=== PATIENT | male | born 1960 | race Caucasian/White ===

== ENCOUNTER → 2016-12-24 | Outpatient (CLI) | payer OTHER ==
[2016-12-24 09:16] LABS: BASO # 0.1 x10^3/uL (0.0-0.2); BASO % 1 % (0-3); EOS # 0.5 x10^3/uL (0.0-0.7); EOS % 6 % (0-3); HEMATOCRIT 42.5 % (39.0-53.0); HEMOGLOBIN 14.5 g/dL (13.0-17.5); LYMPH # 1.6 x10^3/uL (1.0-4.8); LYMPH % 19 % (24-48); MEAN CORPUSCULAR HEMOGLOBIN 29 pg (25-35); MEAN CORPUSCULAR HGB CONC 34 g/dL (31-37); MEAN CORPUSCULAR VOLUME 84 fL (79-100); MONO # 0.5 x10^3/uL (0.0-1.1); MONO % 6 % (0-9); NEUT # 5.9 x10^3uL (1.8-7.7); NEUT % 68 % (31-73); PLATELET COUNT 414 x10^3/uL (140-400); RED BLOOD COUNT 5.06 x10^6/uL (4.30-5.70); RED CELL DISTRIBUTION WIDTH 14.5 % (11.5-14.5); WHITE BLOOD COUNT 8.7 x10^3/uL (4.0-11.0)
[2016-12-24 09:17] LABS: ALBUMIN 3.7 g/dL (3.4-5.0); ALBUMIN/GLOBULIN RATIO 1.1 (1.0-1.7); ALK PHOS 61 U/L (46-116); ALT (SGPT) 16 U/L (16-63); ANION GAP 6 (6-14); AST (SGOT) 15 U/L (15-37); BLOOD UREA NITROGEN 6 mg/dL (8-26); BUN/CREATININE RATIO 5 (6-20); CALCIUM 8.3 mg/dL (8.5-10.1); CARBON DIOXIDE 28 mmol/L (21-32); CHLORIDE 98 mmol/L (98-107); CREATININE 1.1 mg/dL (0.7-1.3); GFR 68.8; GLUCOSE 85 mg/dL (70-99); POTASSIUM 4.5 mmol/L (3.5-5.1); SODIUM 132 mmol/L (136-145); TOTAL BILIRUBIN 0.4 mg/dL (0.2-1.0)
[2016-12-24 09:18] LABS: VAL ACID 40 mcg/mL (50-100)
== END | disposition home or self-care (01) ==
LOC: LAB 08:12
PROVIDERS: ATTEND Clinical Nurse Specialist Psychiatric/Mental Health, Adult
DX: Z51.81 Encounter for therapeutic drug level monitoring (principal); Z79.899 Other long term (current) drug therapy
CPT/HCPCS: 36415; 80053; 80061; 80164; 85027

== ENCOUNTER → 2017-09-21 | Outpatient (CLI) | payer OTHER ==
--- NOTE | 2017-09-21 12:12 | RAD ---
CT head without intravenous contrast History: Altered mental status, strokelike symptoms, prior head surgery. Comparison: None. Technique: Axial images are obtained of the head from the skull base through the vertex without IV contrast. Exposure: One or more of the following individualized dose reduction techniques were utilized for this examination: 1. Automated exposure control 2. Adjustment of the mA and/or kV according to patient size 3. Use of iterative reconstruction technique Findings: Large amount of parenchymal volume loss is seen involving bilateral inferior frontal lobes and bilateral anterior temporal lobes. There may have been right temporal an right frontal maira holes. There is some coarse calcification involving the right anterior temporal region. No obvious acute ischemic infarction is seen. No intracranial mass is appreciated. No acute intracranial hemorrhage is seen. There is compensatory dilatation of the ventricles secondary to the significant volume loss. Bone windows demonstrate no acute calvarial abnormality. The visualized paranasal sinuses appear clear. Impression: 1. No acute intracranial process. Please note that CT can be relatively insensitive to acute ischemic infarction for up to 24 hours after symptom onset. 2. Large amount of volume loss is seen involving bilateral inferior frontal lobes and bilateral anterior temporal lobes, may be due to remote trauma or other insult. Electronically signed by: Ludin Gary MD (09/21/2017 12:09 PM) [facility]
[2017-09-21 12:14] LABS: BASO # 0.1 x10^3/uL (0.0-0.2); BASO % 1 % (0-3); EOS # 0.2 x10^3/uL (0.0-0.7); EOS % 3 % (0-3); HEMATOCRIT 41.9 % (39.0-53.0); HEMOGLOBIN 14.2 g/dL (13.0-17.5); LYMPH # 1.7 x10^3/uL (1.0-4.8); LYMPH % 22 % (24-48); MEAN CORPUSCULAR HEMOGLOBIN 29 pg (25-35); MEAN CORPUSCULAR HGB CONC 34 g/dL (31-37); MEAN CORPUSCULAR VOLUME 85 fL (79-100); MONO # 0.6 x10^3/uL (0.0-1.1); MONO % 8 % (0-9); NEUT # 5.2 x10^3uL (1.8-7.7); NEUT % 67 % (31-73); PLATELET COUNT 515 x10^3/uL (140-400); RED BLOOD COUNT 4.92 x10^6/uL (4.30-5.70); RED CELL DISTRIBUTION WIDTH 15.5 % (11.5-14.5); WHITE BLOOD COUNT 7.8 x10^3/uL (4.0-11.0)
[2017-09-21 12:22] LABS: ALBUMIN 3.4 g/dL (3.4-5.0); ALBUMIN/GLOBULIN RATIO 1.1 (1.0-1.7); CALCIUM 8.4 mg/dL (8.5-10.1); GFR 76.7; POTASSIUM 4.4 mmol/L (3.5-5.1); TOTAL BILIRUBIN 0.4 mg/dL (0.2-1.0); TOTAL PROTEIN 6.5 g/dL (6.4-8.2)
== END | disposition home or self-care (01) ==
LOC: CT 11:22
PROVIDERS: ATTEND General Practice
DX: R41.82 Altered mental status, unspecified (principal)
CPT/HCPCS: 36415; 70450; 80053; 85025

== ENCOUNTER → 2018-02-01 | Outpatient (CLI) | payer OTHER ==
[2018-02-01 10:26] LABS: ALBUMIN 3.8 g/dL (3.4-5.0); ALBUMIN/GLOBULIN RATIO 1.2 (1.0-1.7); ALK PHOS 61 U/L (46-116); ALT (SGPT) 30 U/L (16-63); ANION GAP 5 (6-14); AST (SGOT) 18 U/L (15-37); BLOOD UREA NITROGEN 8 mg/dL (8-26); BUN/CREATININE RATIO 7 (6-20); CARBON DIOXIDE 31 mmol/L (21-32); CHLORIDE 97 mmol/L (98-107); CREATININE 1.1 mg/dL (0.7-1.3); GFR 68.5; GLUCOSE 88 mg/dL (70-99); POTASSIUM 4.1 mmol/L (3.5-5.1); SODIUM 133 mmol/L (136-145); TOTAL BILIRUBIN 0.4 mg/dL (0.2-1.0); TOTAL PROTEIN 7.1 g/dL (6.4-8.2); VAL ACID 71 mcg/mL (50-100)
[2018-02-01 10:29] LABS: BASO # 0.1 x10^3/uL (0.0-0.2); BASO % 1 % (0-3); EOS # 0.2 x10^3/uL (0.0-0.7); EOS % 2 % (0-3); LYMPH # 1.7 x10^3/uL (1.0-4.8); LYMPH % 20 % (24-48); MEAN CORPUSCULAR HEMOGLOBIN 29 pg (25-35); MEAN CORPUSCULAR HGB CONC 34 g/dL (31-37); MEAN CORPUSCULAR VOLUME 86 fL (79-100); MONO # 0.7 x10^3/uL (0.0-1.1); MONO % 8 % (0-9); NEUT # 5.9 x10^3uL (1.8-7.7); NEUT % 69 % (31-73); PLATELET COUNT 757 x10^3/uL (140-400); RED BLOOD COUNT 5.13 x10^6/uL (4.30-5.70); RED CELL DISTRIBUTION WIDTH 15.3 % (11.5-14.5); WHITE BLOOD COUNT 8.5 x10^3/uL (4.0-11.0)
--- NOTE | 2018-02-01 14:25 | EKG ---
[address] [address] Test Date: 2018-02-01 Test Time: 10:06:54 Pat Name: YOLY LASSITER Department: Room: Gender: M [employer]: : 1960 Requested By: ZION HUYNH Order Number: [id number] Reading MD: Leandro Santiago MD Measurements Intervals [place] Rate: 65 P: 72 NC: 140 QRS: 62 QRSD: 86 T: 52 QT: 418 QTc: 435 Interpretive Statements SINUS RHYTHM Electronically Signed On 02-01-2018 14:40:08 CDT by Leandro Santiago MD
== END | disposition home or self-care (01) ==
LOC: LAB 09:16
PROVIDERS: ATTEND Clinical Nurse Specialist Psychiatric/Mental Health, Adult
DX: Z51.81 Encounter for therapeutic drug level monitoring (principal); Z79.899 Other long term (current) drug therapy
CPT/HCPCS: 36415; 80053; 80061; 80164; 84146; 85025; 93005

== ENCOUNTER → 2018-11-01 | Outpatient (CLI) | payer OTHER ==
[2018-11-01 10:03] LABS: ALBUMIN 3.7 g/dL (3.4-5.0); ALBUMIN/GLOBULIN RATIO 1.2 (1.0-1.7); ALK PHOS 65 U/L (46-116); ALT (SGPT) 29 U/L (16-63); ANION GAP 8 (6-14); AST (SGOT) 19 U/L (15-37); BLOOD UREA NITROGEN 8 mg/dL (8-26); BUN/CREATININE RATIO 8 (6-20); CALCIUM 8.8 mg/dL (8.5-10.1); CARBON DIOXIDE 28 mmol/L (21-32); CHLORIDE 96 mmol/L (98-107); GFR 76.2; GLUCOSE 82 mg/dL (70-99); POTASSIUM 4.5 mmol/L (3.5-5.1); SODIUM 132 mmol/L (136-145); TOTAL BILIRUBIN 0.4 mg/dL (0.2-1.0); TOTAL PROTEIN 6.8 g/dL (6.4-8.2)
[2018-11-01 10:05] LABS: BASO # 0.1 x10^3/uL (0.0-0.2); BASO % 1 % (0-3); EOS # 0.3 x10^3/uL (0.0-0.7); EOS % 4 % (0-3); HEMOGLOBIN 15.1 g/dL (13.0-17.5); LYMPH # 1.9 x10^3/uL (1.0-4.8); LYMPH % 25 % (24-48); MEAN CORPUSCULAR HEMOGLOBIN 29 pg (25-35); MEAN CORPUSCULAR HGB CONC 34 g/dL (31-37); MEAN CORPUSCULAR VOLUME 85 fL (79-100); MONO # 0.5 x10^3/uL (0.0-1.1); MONO % 7 % (0-9); NEUT # 4.8 x10^3uL (1.8-7.7); NEUT % 64 % (31-73); RED BLOOD COUNT 5.19 x10^6/uL (4.30-5.70); RED CELL DISTRIBUTION WIDTH 15.4 % (11.5-14.5); WHITE BLOOD COUNT 7.6 x10^3/uL (4.0-11.0)
[2018-11-01 10:12] LABS: VAL ACID 61 mcg/mL (50-100)
[2018-11-01 10:30] LABS: PLT ESTIMATE INCREASED (ADEQUATE)
[2018-11-01 10:33] LABS: PLATELET COUNT 567 x10^3/uL (140-400)
== END | disposition home or self-care (01) ==
LOC: LAB 09:15
PROVIDERS: ATTEND Clinical Nurse Specialist Psychiatric/Mental Health, Adult
DX: Z79.899 Other long term (current) drug therapy (principal)
CPT/HCPCS: 36415; 80053; 80061; 80164; 84146; 85025

== ENCOUNTER 2018-12-02 09:56 | Emergency (ER) | payer OTHER ==
[~2018-12-02] VITALS: Ht 175.3 cm; Wt 59.9 kg
--- NOTE | 2018-12-02 10:12 | PHYS DOC ---
Adult General Chief Complaint Chief Complaint: ALTERED MENTAL STATUS [facility] HPI Patient is a [age] year old [sex] who presents with [] Review of Systems Review of Systems Constitutional: Denies fever or chills [] Eyes: Denies change in visual acuity, redness, or eye pain [] HENT: Denies nasal congestion or sore throat [] Respiratory: Denies cough or shortness of breath [] Cardiovascular: No additional information not addressed in HPI [] GI: Denies abdominal pain, nausea, vomiting, bloody stools or diarrhea [] : Denies dysuria or hematuria [] Musculoskeletal: Denies back pain or joint pain [] Integument: Denies rash or skin lesions [] Neurologic: Denies headache, focal weakness or sensory changes [] Endocrine: Denies polyuria or polydipsia [] All other systems were reviewed and found to be within normal limits, except as documented in this note. Current Medications Current Medications Current Medications Medications (Trade) Dose Ordered Sig/Gigi Start Time Stop Time Status Last Admin Dose Admin Sodium Chloride 1,000 ml @ 1,000 mls/hr 1X ONCE 12/02/18 10:15 12/02/18 11:14 UNV Physical Exam Physical Exam Constitutional: Well developed, well nourished, no acute distress, non-toxic appearance. [] HENT: Normocephalic, atraumatic, bilateral external ears normal, oropharynx mois t, no oral exudates, nose normal. [] Eyes: PERRLA, EOMI, conjunctiva normal, no discharge. [] Neck: Normal range of motion, no tenderness, supple, no stridor. [] Cardiovascular:Heart rate regular rhythm, no murmur [] Lungs & Thorax: Bilateral breath sounds clear to auscultation [] Abdomen: Bowel sounds normal, soft, no tenderness, no masses, no pulsatile masses. [] Skin: Warm, dry, no erythema, no rash. [] Back: No tenderness, no CVA tenderness. [] Extremities: No tenderness, no cyanosis, no clubbing, ROM intact, no edema. [] Neurologic: Alert and oriented X 3, normal motor function, normal sensory function, no focal deficits noted. [] Psychologic: Affect normal, judgement normal, mood normal. [] Current Patient Data Vital Signs Vital Signs Date Time Temp Pulse Resp B/P (MAP) Pulse Ox O2 Delivery O2 Flow Rate FiO2 12/02/18 10:09 97.7 12/02/18 10:04 51 16 129/82 (98) 97 Room Air Lab Results Laboratory Tests Test 12/02/18 10:01 Glucose (Fingerstick) 90 mg/dL (70-99) EKG EKG @1110 Sinus bradycardia at 48bpm, NO ST elevation, QRS 86ms, QT/QTc 494/445ms Radiology/Procedures Radiology/Procedures [] Course & Med Decision Making Course & Med Decision Making Pertinent Labs and Imaging studies reviewed. (See chart for details) [] Dragon Disclaimer Dragon Disclaimer This electronic medical record was generated, in whole or in part, using a voice recognition dictation system. Departure Departure: Impression: Primary Impression: Altered mental state Additional Impressions: Generalized weakness COPD (chronic obstructive pulmonary disease) Disposition: 07 AGAINST MEDICAL ADVICE Condition: GUARDED Referrals: GABBIE WILD DO (PCP) Patient Instructions: Altered Mental Status, Chronic Obstructive Pulmonary Disease, [id number]-Hgtf, Discharge Against Medical Advice, Weakness, Itzb-qq-Itmi Scripts Prednisone (PREDNISONE) 20 Mg Tablet 2 TAB PO DAILY for COPD, #8 TAB Prov: OBDULIA BROWN DO 12/02/18 Albuterol Sulfate (PROAIR HFA INHALER) 8.5 Gm Hfa.aer.ad 1 PUFF INH PRN Q6HRS PRN for WHEEZING, #1 INHALER 0 Refills Prov: OBDULIA BROWN DO 12/02/18 NIHSS - ED NIH Stroke Scale: NIH Stroke Scale Response (Comments) Value Level of Consciousness: 0 Alert/Responsive 0 LOC Questions: 0 Answers both correctly 0 LOC Commands: 0 Performs both tasks 0 Best Gaze: 0 Normal 0 Visual: 1 Partial hemianopia 1 Facial Palsy: 0 Normal, symmetrical 0 Motor - Left Arm 0 No drift 0 Motor - Right Arm 0 No drift 0 Motor - Left Leg 1 Drift but can hold 1 Motor: Right Leg 1 Drift but can hold 1 Limb Ataxia: 0 Absent 0 Sensory: 0 No loss 0 Best Language: 1 Mild to mod aphasia 1 Dysathria: 0 Normal 0 Extinction and Inattention: 0 Normal 0 Total 4 Problem Qualifiers Primary Impression: Altered mental state Altered mental status type: unspecified Qualified Codes: R41.82 - Altered mental status, unspecified Additional Impressions: COPD (chronic obstructive pulmonary disease) COPD type: unspecified COPD Qualified Codes: J44.9 - Chronic obstructive pulmonary disease, unspecified OBDULIA BROWN DO Dec 02, 2018 10:12
[2018-12-02] MEDS ORDERED: IV NORMAL SALINE 1,000ML 1,000 ML IV ONE ×2 (10:15)
[2018-12-02] MEDS ORDERED: IPRATRPIUM/ALBUTEROL 0.5/2.5MG 3 ML NEBU. NEB ONE (10:15)
[2018-12-02 10:31] LABS: BASO # 0.1 x10^3/uL (0.0-0.2); BASO % 1 % (0-3); EOS # 0.4 x10^3/uL (0.0-0.7); EOS % 4 % (0-3); HEMATOCRIT 44.3 % (39.0-53.0); HEMOGLOBIN 14.7 g/dL (13.0-17.5); LYMPH # 1.9 x10^3/uL (1.0-4.8); LYMPH % 22 % (24-48); MEAN CORPUSCULAR HEMOGLOBIN 29 pg (25-35); MEAN CORPUSCULAR HGB CONC 33 g/dL (31-37); MEAN CORPUSCULAR VOLUME 88 fL (79-100); MONO # 0.5 x10^3/uL (0.0-1.1); MONO % 6 % (0-9); NEUT # 5.7 x10^3uL (1.8-7.7); NEUT % 67 % (31-73); PLATELET COUNT 534 x10^3/uL (140-400); RED BLOOD COUNT 5.02 x10^6/uL (4.30-5.70); RED CELL DISTRIBUTION WIDTH 15.5 % (11.5-14.5); WHITE BLOOD COUNT 8.6 x10^3/uL (4.0-11.0)
[2018-12-02 11:00] LABS: BACTERIA,URINE 0 /HPF (0-FEW); BILIRUBIN,URINE NEG (NEG); CLARITY,URINE HAZY; COLOR,URINE YELLOW; GLUCOSE,URINE NEG (NEG); NITRITE,URINE NEG (NEG); RBC,URINE OCC /HPF (0-2); SQUAMOUS EPITHELIAL CELL,UR OCC /LPF; UROBILINOGEN,URINE 1 mg/dL (0.2 mg/dL); WBC,URINE 0 /HPF (0-4)
[2018-12-02 11:01] VITALS: BP 148/45
[2018-12-02 11:02] LABS: ALBUMIN 3.6 g/dL (3.4-5.0); ALBUMIN/GLOBULIN RATIO 1.2 (1.0-1.7); CREATININE 0.9 mg/dL (0.7-1.3); GFR 86.1; POTASSIUM 4.4 mmol/L (3.5-5.1); TOTAL BILIRUBIN 0.2 mg/dL (0.2-1.0); TOTAL PROTEIN 6.7 g/dL (6.4-8.2)
--- NOTE | 2018-12-02 11:03 | RAD ---
AP view of the pelvis and two-view study of the right hip Clinical indications: Right hip pain FINDINGS: No acute fracture or dislocation or lytic process is seen. No diastases is evident. No significant arthritic change of either hip joint is seen. 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 IMPRESSION: No acute osseous abnormality. Electronically signed by: Indra Tsang MD (12/02/2018 11:00 AM) [place] [id number]
--- NOTE | 2018-12-02 11:05 | RAD ---
PORTABLE CHEST 1V Clinical indications: Weakness. Altered mental status. COMPARISON: January 08, 2016. Findings: No acute lung infiltrate or pleural effusion or pulmonary edema or lung mass or pneumothorax is seen. The heart size, pulmonary vasculature, mediastinum and both enmanuel are unremarkable. Impression: No acute radiographic abnormality is seen. Electronically signed by: Indra Tsang MD (12/02/2018 11:02 AM) [facility]
--- NOTE | 2018-12-02 11:08 | RAD ---
PQRS Compliance statement: One or more of the following individualized dose reduction techniques were utilized for this examination: 1. Automated exposure control. 2. Adjustment of the mA and/or kV according to patient size. 3. Use of iterative reconstruction technique. Indication:Altered mental status. TECHNIQUE: CT head without IV contrast COMPARISON:09/21/2017 FINDINGS: No pathologic extra-axial or intra-axial fluid collection. Encephalomalacia involving bilateral temporal and frontal lobes, stable. The ventricles and basal cisterns are within normal limits. No acute intracranial bleed. Lacunar infarct in the left basal ganglia. Orbits are within normal limits. No suspicious calvarial lesions. Visualized paranasal sinuses and mastoid air cells are clear. impression: 1. Stable large area of encephalomalacia in the bilateral temporal and frontal lobes likely old infarct. If concern for acute ischemic stroke is high, please consider MRI brain. 2. No acute intracranial bleed. Indication:Altered mental status. Pain. TECHNIQUE: CT of the cervical spine without IV contrast with multiplanar reformats. COMPARISON:None FINDINGS: Motion artifact is seen limiting optimal evaluation. There is loss of normal cervical lordosis. This could be due to muscle spasm or positioning. Atlantoaxial interval is preserved with mild degenerative changes. No compression deformity. Facet joints are grossly in normal anatomic alignment. Mild multilevel intervertebral disc space narrowing with small osteophyte formation. No apparent acute fractures. Noncontrast appearance of the neck soft tissue is within normal limits. Visualized lung apices are clear. IMPRESSION: Limited exam due to motion artifact. No apparent acute fractures. If is history of trauma and symptoms persist repeat CT of the cervical spine is recommended. Electronically signed by: Damien Dorman DO (12/02/2018 11:05 AM) [facility]
[2018-12-02 11:17] LABS: AMPHETAMINE/METHAMPHETAMINE NEG (NEG); BARBITURATES NEG (NEG); BENZODIAZEPINES NEG (NEG); COCAINE NEG (NEG); METHADONE NEG (NEG); OPIATES NEG (NEG)
[2018-12-02 11:18] LABS: CANNABINOIDS NEG (NEG); PHENCYCLIDINE NEG (NEG)
[2018-12-02] MEDS ORDERED: PRED20TA PO (11:40)
[2018-12-02] MEDS ORDERED: ALBU2.5V8 INH (11:40)
--- NOTE | 2018-12-03 06:48 | EKG ---
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
== END 2018-12-02 11:38 | disposition left against medical advice (07) ==
LOC: ER 09:56
DX: R41.82 Altered mental status, unspecified (principal); R53.1 Weakness; J44.9 Chronic obstructive pulmonary disease, unspecified; M25.551 Pain in right hip
CPT/HCPCS: 36415; 51701; 70450; 71045; 72125; 73502; 80053; 80307; 81001; 82140; 82553; 82947; 83605; 83735; 84484; 85025; 85610; 85730; 87040; 93005; 94640; 99285; G0480; J7620; J7030

== ENCOUNTER → 2019-02-27 | Outpatient (CLI) | payer OTHER ==
[~2019-02-27] MED LIST: ALBU2.5V8 INH; PRED20TA PO
--- NOTE | 2019-02-28 16:29 | RAD ---
Three-view right foot study Clinical indications: Fourth digit pain FINDINGS: No acute fracture or dislocation or lytic process is seen. Small plantar spur of the calcaneus is seen. No periosteal reaction is evident. IMPRESSION: No acute osseous abnormality. Electronically signed by: Indra Tsang MD (02/28/2019 4:26 PM) [facility]
== END | disposition home or self-care (01) ==
LOC: DXRAD 12:54
PROVIDERS: ATTEND General Practice
DX: S90.121A Contusion of right lesser toe(s) without damage to nail, initial encounter (principal); M77.31 Calcaneal spur, right foot; X58.XXXA Exposure to other specified factors, initial encounter; Y93.89 Activity, other specified; Y92.89 Other specified places as the place of occurrence of the external cause; Y99.8 Other external cause status
CPT/HCPCS: 73630

== ENCOUNTER → 2019-04-18 | Outpatient (CLI) | payer OTHER ==
[2019-04-18 12:11] LABS: BASO # 0.1 x10^3/uL (0.0-0.2); BASO % 1 % (0-3); EOS # 0.2 x10^3/uL (0.0-0.7); EOS % 3 % (0-3); HEMATOCRIT 46.9 % (39.0-53.0); HEMOGLOBIN 15.3 g/dL (13.0-17.5); LYMPH # 1.6 x10^3/uL (1.0-4.8); LYMPH % 21 % (24-48); MEAN CORPUSCULAR HEMOGLOBIN 29 pg (25-35); MEAN CORPUSCULAR HGB CONC 33 g/dL (31-37); MEAN CORPUSCULAR VOLUME 88 fL (79-100); MONO # 0.6 x10^3/uL (0.0-1.1); MONO % 7 % (0-9); NEUT # 5.2 x10^3uL (1.8-7.7); NEUT % 68 % (31-73); PLATELET COUNT 644 x10^3/uL (140-400); RED BLOOD COUNT 5.33 x10^6/uL (4.30-5.70); RED CELL DISTRIBUTION WIDTH 15.1 % (11.5-14.5); WHITE BLOOD COUNT 7.7 x10^3/uL (4.0-11.0)
[2019-04-18 12:15] LABS: ALBUMIN 3.7 g/dL (3.4-5.0); ALBUMIN/GLOBULIN RATIO 1.1 (1.0-1.7); CALCIUM 8.8 mg/dL (8.5-10.1); CREATININE 0.9 mg/dL (0.7-1.3); GFR 86.1; POTASSIUM 4.6 mmol/L (3.5-5.1); TOTAL BILIRUBIN 0.3 mg/dL (0.2-1.0); TOTAL PROTEIN 7.1 g/dL (6.4-8.2)
== END | disposition home or self-care (01) ==
LOC: LAB 11:14
PROVIDERS: ATTEND Clinical Nurse Specialist Psychiatric/Mental Health, Adult
DX: Z79.899 Other long term (current) drug therapy (principal)
CPT/HCPCS: 36415; 80053; 80061; 84146; 85025

== ENCOUNTER 2019-05-30 11:56 | Emergency (ER) | payer OTHER ==
[~2019-05-30] VITALS: Ht 175.3 cm; Wt 68.0 kg
--- NOTE | 2019-05-30 12:28 | PHYS DOC ---
Past History Past Medical History: Arthritis, Other Additional Past Medical Histor: Left eye blindness Additional Past Surgical Histo: hernia repair 4 months ago Smoking: Cigarettes Alcohol Use: None Drug Use: None Adult General Chief Complaint Chief Complaint: SUICIDAL IDEATION HPI HPI A 58-year-old male presents with report of suicidal ideation. He's been hospitalized in psychiatric hospitals four times in the past, most recently 4 years ago. He's had multiple suicide attempts; wrist cutting, firearms, drug overdoses. He most recently overdosed on Klonopin a week ago but was not hospitalized for it. He denies drug overdoses or physical self-harm today. He was planning on cutting his wrist today and had presented to local behavioral center, who sent patient to ED for medical screening. Review of Systems Review of Systems Constitutional: Denies fever or chills Eyes: Denies redness or eye pain HENT: Denies nasal congestion or sore throat Respiratory: Denies cough but reports mild shortness of breath. Cardiovascular: Denies chest pain or palpitations GI: Denies abdominal pain, nausea, or vomiting : Denies dysuria or hematuria Musculoskeletal: Denies back pain or joint pain Integument: Denies rash or skin lesions Neurologic: Denies headache, focal weakness or sensory changes Psych: Reports hearing voices telling him to harm himself and trying to take him back to care home. Complete systems were reviewed and found to be within normal limits, except as documented in this note. Allergies Allergies Allergies Coded Allergies Type Severity Reaction Last Updated Verified No Known Drug Allergies 12/02/18 No Physical Exam Physical Exam Constitutional: Appears older than stated age, disheveled, tearful. HENT: Normocephalic, atraumatic, oropharynx moist Eyes: PERRL, EOMI, conjunctiva normal, no discharge Neck: Normal range of motion, no tenderness, supple Cardiovascular: Heart rate normal, regular rhythm Lungs & Thorax: Bilateral breath sounds and coarse breath sounds, no wheezing Abdomen: Soft, no tenderness Skin: Warm, dry, no erythema, no rash Back: No tenderness, no CVA tenderness Extremities: No tenderness, ROM intact, no edema Neurologic: Alert and oriented X 3, normal motor function, normal sensory function, no focal deficits noted Psychologic: Depressed, tearful, reports auditory hallucinations, reports suicidal ideation EKG EKG EKG at 1229 shows sinus bradycardia with a heart rate of 55 bpm. Low voltage QRS complexes seen and leads 1 through aVF. QRS measures at 88 ms and corrected QT measures at 413 ms. There appears to be some prominent T waves in V2 and V3 Radiology/Procedures Radiology/Procedures PROCEDURE: CHEST PA & LATERAL PA and lateral views of the chest. Comparison: 12/02/2018. Indication: Wheezing Findings: Lungs are hyperexpanded. The heart size is normal. No pneumothorax or effusion. No air space or interstitial disease. The bony structures are intact. Impression: 1. No acute cardiopulmonary process. 2. Findings suggest COPD. Electronically signed by: Jerry Alicia MD (05/30/2019 12:47 PM) [facility] Course & Med Decision Making Course & Med Decision Making Pertinent Labs and Imaging studies reviewed. (See chart for details) Psychiatric patient presents with report of suicidal ideation with report of auditory hallucinations. Patient with history of prior inpatient psychiatric admissions for similar. Labs obtained and posted to chart. EKG and CXR stable. Patient deemed medically cleared for psychiatric assessment. Psychiatric assessment performed with safety contract. Patient stable for discharge with outpatient follow-up with PCP and behavioral center. Discussed findings and plan with patient, who acknowledges understanding and agreement. Dragon Disclaimer Dragon Disclaimer This electronic medical record was generated, in whole or in part, using a voice recognition dictation system. Departure Departure: Impression: Primary Impression: Suicidal ideation Disposition: 01 HOME, SELF-CARE Condition: STABLE Referrals: GABBIE WILD DO (PCP) Patient Instructions: Suicidal Feelings, How to Help Yourself OBDULIA BROWN DO May 30, 2019 12:28
--- NOTE | 2019-05-30 12:35 | EKG ---
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
[2019-05-30] MEDS ORDERED: DEXAMETHASONE 4 MG TABLET PO ONE (12:45)
[2019-05-30] MEDS ORDERED: IPRATRPIUM/ALBUTEROL 0.5/2.5MG 3 ML NEBU. NEB ONE (12:45)
[2019-05-30 12:46] LABS: BASO # 0.2 x10^3/uL (0.0-0.2); BASO % 2 % (0-3); EOS # 0.3 x10^3/uL (0.0-0.7); EOS % 3 % (0-3); HEMATOCRIT 44.2 % (39.0-53.0); LYMPH # 1.8 x10^3/uL (1.0-4.8); LYMPH % 20 % (24-48); MEAN CORPUSCULAR HEMOGLOBIN 29 pg (25-35); MEAN CORPUSCULAR HGB CONC 34 g/dL (31-37); MEAN CORPUSCULAR VOLUME 86 fL (79-100); MONO # 0.7 x10^3/uL (0.0-1.1); MONO % 8 % (0-9); NEUT # 5.9 x10^3uL (1.8-7.7); NEUT % 67 % (31-73); PLATELET COUNT 624 x10^3/uL (140-400); RED BLOOD COUNT 5.14 x10^6/uL (4.30-5.70); RED CELL DISTRIBUTION WIDTH 15.2 % (11.5-14.5); WHITE BLOOD COUNT 8.8 x10^3/uL (4.0-11.0)
--- NOTE | 2019-05-30 12:50 | RAD ---
PA and lateral views of the chest. Comparison: 12/02/2018. Indication: Wheezing Findings: Lungs are hyperexpanded. The heart size is normal. No pneumothorax or effusion. No air space or interstitial disease. The bony structures are intact. Impression: 1. No acute cardiopulmonary process. 2. Findings suggest COPD. Electronically signed by: Jerry Alicia MD (05/30/2019 12:47 PM) [facility]
[2019-05-30 12:53] LABS: CALCIUM 8.6 mg/dL (8.5-10.1); CREATININE 0.9 mg/dL (0.7-1.3); GFR 86.1; POTASSIUM 4.5 mmol/L (3.5-5.1)
[2019-05-30 12:57] LABS: ACETAMIN < 2.0 mcg/mL (10-30); SALIC 3.9 mg/dL (2.8-20.0)
[2019-05-30 12:59] LABS: ALBUMIN 3.7 g/dL (3.4-5.0); ALBUMIN/GLOBULIN RATIO 1.2 (1.0-1.7); MAGNESIUM 2.1 mg/dL (1.8-2.4); TOTAL BILIRUBIN 0.3 mg/dL (0.2-1.0); TOTAL PROTEIN 6.9 g/dL (6.4-8.2)
[2019-05-30 14:37] LABS: AMPHETAMINE/METHAMPHETAMINE NEG (NEG); BARBITURATES NEG (NEG); BENZODIAZEPINES NEG (NEG); CANNABINOIDS NEG (NEG); COCAINE NEG (NEG); METHADONE NEG (NEG); OPIATES NEG (NEG); PHENCYCLIDINE NEG (NEG)
[2019-05-30 14:49] LABS: BACTERIA,URINE 0 /HPF (0-FEW); BILIRUBIN,URINE NEG (NEG); CLARITY,URINE CLEAR; COLOR,URINE YELLOW; GLUCOSE,URINE NEG (NEG); NITRITE,URINE NEG (NEG); SQUAMOUS EPITHELIAL CELL,UR OCC /LPF; UROBILINOGEN,URINE 0.2 mg/dL (0.2 mg/dL)
[2019-05-30 15:35] VITALS: BP 142/80
== END 2019-05-30 15:35 | disposition home or self-care (01) ==
LOC: ER 11:56
DX: R45.851 Suicidal ideations (principal); R44.0 Auditory hallucinations; R06.02 Shortness of breath; M19.90 Unspecified osteoarthritis, unspecified site; F17.210 Nicotine dependence, cigarettes, uncomplicated
CPT/HCPCS: 36415; 71046; 80053; 80307; 80329; 81001; 83735; 85025; 85610; 85730; 93005; 94640; 99285; G0480; J7620; J8540; 82003

== ENCOUNTER → 2020-01-11 | Outpatient (CLI) | payer OTHER ==
--- NOTE | 2020-01-11 11:42 | RAD ---
INDICATION: Reason: COUGH, WEAKNESS / Spl. Instructions: / History: COMPARISON: May 30, 2019 FINDINGS: 2 view of chest obtained. Cardiac silhouette is unremarkable. Mild disorganization of the pulmonary markings bilaterally but similar to prior. There is some flattening of the bilateral diaphragm. No definite consolidation. Degenerative changes spine IMPRESSION: * No focal airspace consolidation. * Disorganized pulmonary markings bilaterally with hyperexpansion. Would correlate for possible causes such as asthma or emphysema. Electronically signed by: Alvin Cabral MD (01/11/2020 11:39 AM) [id number]
== END ==
LOC: DXRAD 11:10
PROVIDERS: ATTEND Family Medicine
DX: R05 Cough (principal); R53.1 Weakness
CPT/HCPCS: 71046

== ENCOUNTER 2020-05-06 13:54 | Emergency (ER) | payer OTHER ==
[~2020-05-06] VITALS: Ht 170.2 cm; Wt 62.0 kg
[2020-05-06 14:13] VITALS: BP 154/99
[2020-05-06] MEDS ORDERED: HEPARIN for IV BOLUS 10,000 UNIT/10 ML VIAL. IV ONE (14:15)
[2020-05-06] MEDS ORDERED: ASPIRIN CHEWABLE 81 MG TABLET. PO ONE (14:15)
--- NOTE | 2020-05-06 14:22 | PHYS DOC ---
Past History Past Medical History: Arthritis, Other Additional Past Medical Histor: right eye blindness Additional Past Surgical Histo: hernia repair 4 months ago Smoking: Cigarettes Alcohol Use: None Drug Use: None General Adult EDM: Chief Complaint: CHEST PAIN HPI: HPI: Patient is a 59-year-old male who arrives via EMS with a chief complaint of chest pain patient began having chest pain had a proximally 130 this morning. Patient was at the crisis center and pain got worse. Patient describes substernal chest pain is pressure in nature. Patient also had some difficulty breathing. Symptoms is worse with exertion and better with rest. Pain is moderate to severe currently. Pain denies any current radiation. Patient has also had fevers and a cough. Review of Systems: Review of Systems: Constitutional: Patient reports fever but no chills Eyes: Denies change in visual acuity HENT: Denies nasal congestion or sore throat Respiratory: Patient reports cough and shortness of breath Cardiovascular: Patient complains of chest pain but no edema GI: Denies abdominal pain, nausea, vomiting, bloody stools or diarrhea : Denies dysuria Musculoskeletal: Denies back pain or joint pain Integument: Denies rash Neurologic: Denies headache, focal weakness or sensory changes Endocrine: Denies polyuria or polydipsia Lymphatic: Denies swollen glands Psychiatric: Denies depression or anxiety Allergies: Allergies: Allergies Coded Allergies Type Severity Reaction Last Updated Verified haloperidol Allergy Unknown 05/06/20 Yes soy Allergy Unknown 05/06/20 Yes Physical Exam: PE: Constitutional: Well developed, disheveled mild distress that keep that HENT: Normocephalic, atraumatic, bilateral external ears normal, oropharynx moist, no oral exudates, nose normal. [] Eyes: Disconjugate gaze Neck: Normal range of motion, no tenderness, supple, no stridor. [] Cardiovascular:Heart rate regular rhythm, peripheral pulse intact cap refill is brisk Lungs & Thorax: Decreased breath sounds bilaterally Abdomen: Soft no tenderness, no masses, no pulsatile masses. [] Skin: Warm, dry, no erythema, no rash. [] Back: No tenderness, no CVA tenderness. [] Extremities: No tenderness, no cyanosis, no clubbing, ROM intact, no edema. [] Neurologic: Alert and oriented X 3, normal motor function, normal sensory function, no focal deficits noted. [] Psychologic: Affect normal, judgement normal, mood normal. [] Current Patient Data: Labs: Laboratory Tests Test 05/06/20 14:07 05/06/20 14:10 White Blood Count 20.1 x10^3/uL Red Blood Count 5.13 x10^6/uL Hemoglobin 15.0 g/dL Hematocrit 45.6 % Mean Corpuscular Volume 89 fL Mean Corpuscular Hemoglobin 29 pg Mean Corpuscular Hemoglobin Concent 33 g/dL Red Cell Distribution Width 14.8 % Platelet Count 971 x10^3/uL Neutrophils (%) (Auto) 89 % Lymphocytes (%) (Auto) 4 % Monocytes (%) (Auto) 6 % Eosinophils (%) (Auto) 0 % Basophils (%) (Auto) 0 % Neutrophils # (Auto) 18.0 x10^3uL Lymphocytes # (Auto) 0.8 x10^3/uL Monocytes # (Auto) 1.3 x10^3/uL Eosinophils # (Auto) 0.0 x10^3/uL Basophils # (Auto) 0.1 x10^3/uL Platelet Estimate Pending Prothrombin Time 10.9 SEC Prothromb Time International Ratio 1.1 Activated Partial Thromboplast Time 30 SEC Lactic Acid Level 1.8 mmol/L Troponin I Quantitative 45.245 ng/mL Sodium Level 131 mmol/L Potassium Level 4.8 mmol/L Chloride Level 95 mmol/L Carbon Dioxide Level 27 mmol/L Anion Gap 9 Blood Urea Nitrogen 19 mg/dL Creatinine 1.2 mg/dL Estimated GFR (Cockcroft-Gault) 61.6 BUN/Creatinine Ratio 16 Glucose Level 122 mg/dL Calcium Level 9.2 mg/dL Magnesium Level 2.3 mg/dL Total Bilirubin 0.3 mg/dL Aspartate Amino Transf (AST/SGOT) 250 U/L Alanine Aminotransferase (ALT/SGPT) 45 U/L Alkaline Phosphatase 65 U/L Total Protein 7.3 g/dL Albumin 3.9 g/dL Albumin/Globulin Ratio 1.1 Lipase 194 U/L Current Medications Medications (Trade) Dose Ordered Sig/Gigi Route PRN Reason Start Time Stop Time Status Last Admin Dose Admin Aspirin (Aspirin Chewable) 324 mg 1X ONCE PO 05/06/20 14:15 05/06/20 14:19 DC Heparin Sodium (Porcine) (Heparin Sodium) 3,700 unit 1X ONCE IV 05/06/20 14:15 05/06/20 14:19 DC 05/06/20 14:30 Current Medications Medications (Trade) Dose Ordered Sig/Gigi Route PRN Reason Start Time Stop Time Status Last Admin Dose Admin Aspirin (Aspirin Chewable) 324 mg 1X ONCE PO 05/06/20 14:15 05/06/20 14:19 DC Heparin Sodium (Porcine) (Heparin Sodium) 3,700 unit 1X ONCE IV 05/06/20 14:15 05/06/20 14:19 DC Vital Signs: Vital Signs Date Time Temp Pulse Resp B/P (MAP) Pulse Ox O2 Delivery O2 Flow Rate FiO2 05/06/20 14:00 99.8 67 18 165/111 (129) EKG: EKG: [] EKG interpreted by me junctional rhythm with left axis deviation ST elevations in the precordial leads with reciprocal ST depressions in anterior leads consistent with myocardial infarction, rate of 88 Radiology/Procedures: Radiology/Procedures: [][place] [address] IMAGING REPORT Signed PATIENT: YOLY LASSITER ACCOUNT: [id number] : 1960 LOCATION: ER AGE: 59 SEX: M EXAM STATUS: DEP ER ORD. PHYSICIAN: DEB HERNÁNDEZ MD REASON: CHEST PAIN, EKG PROCEDURE: PORTABLE CHEST 1V XR CHEST 1V Clinical indications: Chest pain. COMPARISON: January 11, 2020. Findings: No acute lung infiltrate or pleural effusion or pulmonary edema or desiree ng mass or pneumothorax is seen. The heart size, pulmonary vasculature, mediastinum and both enmanuel are unremarkable. Impression: No acute radiographic abnormality is seen. Electronically signed by: Krystin Tsang MD (05/06/2020 3:21 PM) [id number] DICTATED AND SIGNED BY: KRYSTIN TSANG MD DATE: 05/06/20 1520 CC: GABBIE WILD DO; DEB HERNÁNDEZ MD ~MTH0 0 Heart Score: HEART Score for Chest Pain: HEART Score for Chest Pain Response (Comments) Value History Highly Suspicious [address] Depression 2 Age >45 - < 65 1 Risk Factors 1 or 2 Risk Factors 1 Total 6 Risk Factors: Risk Factors: DM, Current or recent (<one month) smoker, HTN, HLP, family history of CAD, obesity. Risk Scores: Score 0 - 3: 2.5% MACE over next 6 weeks - Discharge Home Score 4 - 6: 20.3% MACE over next 6 weeks - Admit for Clinical Observation Score 7 - 10: 72.7% MACE over next 6 weeks - Early Invasive Strategies Course & Med Decision Making: Course & Med Decision Making Pertinent Labs and Imaging studies reviewed. (See chart for details) [] 59-year-old male arrives with chest pain. Patient has ST elevation on his EKG. Code STEMI was activated. Discussed the case with Dr. Gonzalez who accept the patient to [facility]. Patient will get heparin and aspirin here. Patient also has a fever and a cough. Cultures and rapid Covid will be ordered. I discussed the case with Dr. Belle who will be the admitting physician at [facility] Critical care time was [30] minutes exclusive of procedures. Critical condition: STEMI Critical interventions, aspirin, heparin, emergent transfer to [facility] for PCI Elliott Disclaimer: Elliott Disclaimer: This electronic medical record was generated, in whole or in part, using a voice recognition dictation system. Departure Departure: Impression: Primary Impression: STEMI (ST elevation myocardial infarction) Additional Impression: Suspected COVID-19 virus infection Disposition: 02 DC/TRF OTHER SHORT TERM HOS ([place]) Condition: CRITICAL Referrals: GABBIE WILD DO (PCP) DEB HERNÁNDEZ MD May 06, 2020 14:22
[2020-05-06 14:47] LABS: BASO # 0.1 x10^3/uL (0.0-0.2); BASO % 0 % (0-3); EOS % 0 % (0-3); HEMATOCRIT 45.6 % (39.0-53.0); LYMPH # 0.8 x10^3/uL (1.0-4.8); LYMPH % 4 % (24-48); MEAN CORPUSCULAR HEMOGLOBIN 29 pg (25-35); MEAN CORPUSCULAR HGB CONC 33 g/dL (31-37); MEAN CORPUSCULAR VOLUME 89 fL (79-100); MONO # 1.3 x10^3/uL (0.0-1.1); MONO % 6 % (0-9); NEUT % 89 % (31-73); RED BLOOD COUNT 5.13 x10^6/uL (4.30-5.70); RED CELL DISTRIBUTION WIDTH 14.8 % (11.5-14.5); WHITE BLOOD COUNT 20.1 x10^3/uL (4.0-11.0)
[2020-05-06 14:49] LABS: CALCIUM 9.2 mg/dL (8.5-10.1); CREATININE 1.2 mg/dL (0.7-1.3); GFR 61.6; POTASSIUM 4.8 mmol/L (3.5-5.1)
[2020-05-06 14:55] LABS: ALBUMIN 3.9 g/dL (3.4-5.0); ALBUMIN/GLOBULIN RATIO 1.1 (1.0-1.7); MAGNESIUM 2.3 mg/dL (1.8-2.4); TOTAL BILIRUBIN 0.3 mg/dL (0.2-1.0); TOTAL PROTEIN 7.3 g/dL (6.4-8.2)
[2020-05-06 14:56] LABS: PLATELET COUNT 971 x10^3/uL (140-400)
--- NOTE | 2020-05-06 15:24 | RAD ---
XR CHEST 1V Clinical indications: Chest pain. COMPARISON: January 11, 2020. Findings: No acute lung infiltrate or pleural effusion or pulmonary edema or lung mass or pneumothora x is seen. The heart size, pulmonary vasculature, mediastinum and both enmanuel are unremarkable. Impression: No acute radiographic abnormality is seen. Electronically signed by: Indra Tsang MD (05/06/2020 3:21 PM) [id number]
--- NOTE | 2020-05-06 15:58 | EKG ---
[address] [address] Test Date: 2020-05-06 Test Time: 14:05:20 Pat Name: YOLY LASSITER Department: Room: Gender: M [place] Carver: NEETA : 1960 Requested By: DEB HERNÁNDEZ Order Number: [id number] Reading MD: Measurements Intervals [place] Rate: 88 P: MN: QRS: -80 QRSD: 138 T: 92 QT: 400 QTc: 488 Interpretive Statements ACCELERATED JUNCTIONAL RHYTHM ABNORMAL LEFT AXIS DEVIATION NON SPECIFIC INTRAVENTRICULAR BLOCK QRS(T) CONTOUR ABNORMALITY CONSISTENT WITH ANTERIOR INFARCT POSSIBLY RECENT ABNORMAL ECG RI6.02 Compared to ECG 05/06/2020 14:00:04 Accelerated junctional rhythm now present T-wave abnormality no longer present Myocardial infarct finding still present
[2020-05-06 22:09] LABS: % LYMPHS 4 % (24-48); % MONOS 3 % (0-10); % SEGS 93 % (35-66); PLT ESTIMATE INCREASED (ADEQUATE)
== END 2020-05-06 14:39 | disposition short-term general hospital (02) ==
LOC: ER 13:54
DX: I21.3 ST elevation (STEMI) myocardial infarction of unspecified site (principal); Z20.828 Contact with and (suspected) exposure to other viral communicable diseases; R07.89 Other chest pain; R50.9 Fever, unspecified; R05 Cough; R06.02 Shortness of breath; M19.90 Unspecified osteoarthritis, unspecified site; F17.210 Nicotine dependence, cigarettes, uncomplicated; Z98.890 Other specified postprocedural states; Z88.8 Allergy status to other drugs, medicaments and biological substances
CPT/HCPCS: 36415; 71045; 80053; 83605; 83690; 83735; 84443; 84484; 85007; 85025; 85610; 85730; 87040; 87426; 93005; 96374; 99291; C9803; J1644; U0003

== ENCOUNTER 2020-11-16 23:13 | Emergency (ER) | payer OTHER ==
[~2020-11-16] VITALS: Ht 170.2 cm; Wt 48.0 kg
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
[2020-11-16] MEDS: TETANUS AND DIPHTHERIA TOX/PF 0.5 ML VIAL. VAX IM ONE (23:45)
[2020-11-16] MEDS: LIDOCAINE 2%/EPI 1:100,000 20 ML VIAL. IJ ONE (23:45)
--- NOTE | 2020-11-16 23:58 | RAD ---
CT brain without contrast, CT C-spine without contrast. HISTORY: Head injury CT scan of brain was done without contrast. Comparison is made with an old study from November 2018. Ther e is extensive encephalomalacia anteriorly in the frontal lobes, and temporal lobes from old injury o r old infarcts. There is no intracranial hemorrhage or subdural hematoma. There is extracranial swell ing posteriorly. Ventricles are normal in size. There is no shift of the midline. A skull fracture is not identified. Visualized sinuses are clear. IMPRESSION: 1. 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 2. No change from the old study. 3. No intracranial hemorrhage. End impression CT cervical spine Axial CT images were obtained through the cervical spine. There is motion artifact. An acute fracture is not identified. There is reversal the normal cervical lordosis. There is mild anterior subluxatio n at C3-4. There is slight subluxation at C4-5. There is disc space narrowing and spurring at C5-6 an d C6-7. Positioning for the imaging is not optimal. IMPRESSION: 1. Some limitations due to positioning and motion artifact. 2. No definite C-spine fracture noted. PQRS Compliance Statement: One or more of the following individualized dose reduction techniques were utilized for this examinat ion: 1. Automated exposure control 2. Adjustment of the mA and/or kV according to patient size 3. Use of iterative reconstruction technique Electronically signed by: Marco Zimmerman MD (11/16/2020 11:56 PM) [facility]
[2020-11-17] MEDS: LIDOCAINE 1%/EPI 1:100,000 20 ML VIAL. IJ ONE (00:45)
[2020-11-17] MEDS: BACITRACIN ZINC TOPICAL OINT PACKET. TP ONE (01:00)
[2020-11-17] MEDS: DIPH,PERTUSS(ACELL),TET VAC/PF 0.5 ML SYRINGE. VAX IM ONE (01:02)
[2020-11-17 01:55] VITALS: BP 118/88
--- NOTE | 2020-11-17 04:01 | RAD ---
Examination: 4 views of the right knee HISTORY: History of injury COMPARISON: None available FINDINGS: Mild joint space loss identified in the medial, lateral, patellofemoral compartments. There is no acu te fracture or dislocation identified. IMPRESSION: Mild tricompartmental degenerative changes. No acute osseous findings. Electronically signed by: Dionte Matos MD (11/17/2020 3:59 AM) [id number]
== END 2020-11-17 02:00 | disposition home or self-care (01) ==
LOC: ER 23:13
DX: S01.01XA Laceration without foreign body of scalp, initial encounter (principal); S80.01XA Contusion of right knee, initial encounter; J44.9 Chronic obstructive pulmonary disease, unspecified; I10 Essential (primary) hypertension; F17.210 Nicotine dependence, cigarettes, uncomplicated; W18.00XA Striking against unspecified object with subsequent fall, initial encounter; Y93.89 Activity, other specified; Y92.89 Other specified places as the place of occurrence of the external cause; Y99.8 Other external cause status
CPT/HCPCS: 70450; 72125; 73564; 90471; 90715; 99285-25

== ENCOUNTER → 2020-12-10 | Outpatient (CLI) | payer OTHER ==
[2020-11-17 01:55] VITALS: BP 118/88
--- NOTE | 2020-12-10 13:16 | RAD ---
AP pelvis and left hip AP and lateral x-rays HISTORY: Fall 3 weeks ago, hip pain. FINDINGS: Arterial vascular calcifications of the iliac and femoral arteries. No acute fracture or di slocation of the left hip. Osteoarthritis of the pubic symphysis with bony sclerosis and mild bony sp urring. Soft tissues are unremarkable. IMPRESSION: No acute osseous injury. Electronically signed by: Reggie Cox MD (12/10/2020 1:14 PM) [facility]
== END ==
LOC: RAD 12:25
PROVIDERS: ATTEND Nurse Practitioner Family
DX: M17.12 Unilateral primary osteoarthritis, left knee (principal); I70.90 Unspecified atherosclerosis
CPT/HCPCS: 73502

== ENCOUNTER → 2021-04-15 | Outpatient (CLI) | payer OTHER ==
--- NOTE | 2021-04-15 17:16 | CARD ---
MR#: [id number] Date of Study: 04/15/2021 Ordering Physician: JOSEPH FLORES, Referring Physician: JOSEPH FLORES, Tech: Caren Murry [facility] APPROVED REPORT EXAM: Two-dimensional and M-mode echocardiogram with Doppler and color Doppler. Other Information Quality : AverageHR: 62bpm INDICATION COPD Cardiac Disease: CAD RISK FACTORS Hypertension Hyperlipidemia Smoking 2D DIMENSIONS Left Atrium(2D)2.6 (1.6-4.0cm)IVSd0.7 (0.7-1.1cm) Aortic Root(2D)3.6 (2.0-3.7cm)LVDd5.1 (3.9-5.9cm) LVOT Diameter2.2 (1.8-2.4cm)PWd0.9 (0.7-1.1cm) LVDs3.6 (2.5-4.0cm)FS (%) 29.5 % SV68.9 ml Aortic Valve AoV Peak Robel.118.7cm/sAoV VTI19.6cm AO Peak GR.5.6mmHgLVOT Peak Robel.83.1cm/s LVOT VTI 14.39cmAO Mean GR.3mmHg MARIBELL (VMAX)2.35ms6UYW (VTI)2.70cm2 Mitral Valve MV E Qnnwywvw29.4cm/sMV E Peak Gr.2mmHg MV DECEL [id number] A Iyugsqyr66.5cm/s MV E Mean Gr.1mmHgE/A Ratio0.7 Pulmonary Valve PV Peak Wefbbpqq79.5cm/sPV Peak Grad.2mmHg Tricuspid Valve TR P. Gvjtxmlw754wk/sRAP JLWMSEXI3mlAk TR Peak Gr.99mbOlEFLJ73xvNs LEFT VENTRICLE The left ventricle is normal size. There is normal left ventricular wall thickness. LV systolic funct ion is moderately impaired. LV Ejection Fraction is 35-40%. Septal motion consistent with conduction abnormality and there is global hypokinesis of the left ventricle. Transmitral Doppler flow pattern i s Grade I-abnormal relaxation pattern. RIGHT VENTRICLE The right ventricle is normal size. There is normal right ventricular wall thickness. The right ventr icular systolic function is normal. ATRIA The left atrium size is normal. The right atrium size is normal. The interatrial septum is intact wit h no evidence for an atrial septal defect or patent foramen ovale as noted on 2-D or Doppler imaging. AORTIC VALVE The aortic valve is normal in structure and function. Doppler and Color Flow revealed no significant aortic regurgitation. There is no significant aortic valvular stenosis. Calculated aortic valve area is 2.8 cm2 with maximum pressure gradient of 6 mmHg and mean pressure gradient of 3 mmHg. MITRAL VALVE The mitral valve is normal in structure and function. There is no evidence of mitral valve prolapse. There is no mitral valve stenosis. Doppler and Color Flow revealed trace mitral valve regurgitation. TRICUSPID VALVE The tricuspid valve is normal in structure and function. Doppler and Color Flow revealed trace tricus pid regurgitation with an estimated PAP of 29 mmHg. There is no tricuspid valve stenosis. PULMONIC VALVE The pulmonic valve is not well visualized. Doppler and Color Flow revealed no pulmonic valvular regur gitation. GREAT VESSELS The aortic root is normal in size. The IVC is normal in size and collapses >50% with inspiration. PERICARDIAL EFFUSION There is no evidence of significant pericardial effusion. Critical Notification Critical Value: No <Conclusion> The left ventricle is normal size. LV systolic function is moderately impaired. LV Ejection Fraction is 35-40%. Septal motion consistent with conduction abnormality and there is global hypokinesis of the left vent ricle. Doppler and Color Flow revealed no significant aortic regurgitation. There is no significant aortic valvular stenosis. Doppler and Color Flow revealed trace mitral valve regurgitation. Doppler and Color Flow revealed trace tricuspid regurgitation with an estimated PAP of 29 mmHg. Signed by : Zeke Goldberg MD Electronically Approved : 04/15/2021 17:15:28
== END ==
LOC: ECHO 13:52
PROVIDERS: ATTEND Internal Medicine Cardiovascular Disease
DX: I25.10 Atherosclerotic heart disease of native coronary artery without angina pectoris (principal); J44.9 Chronic obstructive pulmonary disease, unspecified
CPT/HCPCS: 93306

== ENCOUNTER 2021-04-30 16:44 | Emergency (ER) | payer OTHER ==
[~2021-04-30] VITALS: Ht 167.6 cm; Wt 61.3 kg
[2021-04-30 17:06] VITALS: BP 112/85
--- NOTE | 2021-04-30 17:07 | PHYS DOC ---
Past History Past Medical History: Arthritis, COPD, Hypertension, Schizophrenia, Other Additional Past Medical Histor: ` (ASHER JJ APRN) Past Surgical History: Other Additional Past Surgical Histo: hernia repair 4 months ago (ASHER JJ APRN) Smoking: Cigarettes Alcohol Use: None Drug Use: None (ASHER JJ APRN) General Adult EDM: Chief Complaint: LACERATION/AVULSION HPI: HPI: Patient is a 60-year-old male who presents with bleeding from his wound on top of his head. Patient was seen by his stone carriage operator today and had a biopsy. Patient reports that wound started bleeding out of nowhere and was unable to control bleeding. History of hypertension, COPD, schizophrenia. Patient takes an aspirin daily. Denies pain or any other complaints. (ASHER JJ APRN) Review of Systems: Review of Systems: ROS At least 10 ROS systems have been reviewed and are negative except as documented in the HPI. General: Negative except as outlined in HPI above. Skin: Negative except as outlined in HPI above. HEENT: Negative except as outlined in HPI above. Neck: Negative except as outlined in HPI above. Respiratory: Negative except as outlined in HPI above.. Cardiovascular: Negative except as outlined in HPI above. Abdomen: Negative except as outlined in HPI above. : Negative except as outlined in HPI above. Back/MSK: Negative except as outlined in HPI above. Neuro: Negative except as outlined in HPI above. Psych: Negative except as outlined in HPI above. (ASHER JJ APRN) Allergies: Allergies: Allergies Coded Allergies Type Severity Reaction Last Updated Verified haloperidol Allergy Unknown 05/06/20 Yes soy Allergy Unknown 05/06/20 Yes (ASHER JJ APRN) Physical Exam: PE: Constitutional: Well developed, well nourished, no acute distress, non-toxic appearance. [] HENT: Normocephalic, atraumatic, bilateral external ears normal, oropharynx moist, no oral exudates, nose normal. [] Eyes: PERRLA, EOMI, conjunctiva normal, no discharge. [] Neck: Normal range of motion, no tenderness, supple, no stridor. [] Cardiovascular:Heart rate regular rhythm, no murmur [] Lungs & Thorax: Bilateral breath sounds clear to auscultation [] Abdomen: Bowel sounds normal, soft, no tenderness, no masses, no pulsatile masses. [] Skin: Sutures on top of head wound Back: No tenderness, no CVA tenderness. [] Extremities: No tenderness, no cyanosis, no clubbing, ROM intact, no edema. [] Neurologic: Alert and oriented X 3, normal motor function, normal sensory function, no focal deficits noted. [] Psychologic: Affect normal, judgement normal, mood normal. [] (ASHER JJ APRN) EKG: EKG: [] (ASHER JJ APRN) Radiology/Procedures: Radiology/Procedures: [] (ASHER JJ APRN) Heart Score: C/O Chest Pain: No Risk Factors: Risk Factors: DM, Current or recent (<one month) smoker, HTN, HLP, family history of CAD, obesity. Risk Scores: Score 0 - 3: 2.5% MACE over next 6 weeks - Discharge Home Score 4 - 6: 20.3% MACE over next 6 weeks - Admit for Clinical Observation Score 7 - 10: 72.7% MACE over next 6 weeks - Early Invasive Strategies (ASHER JJ APRN) Course & Med Decision Making: Course & Med Decision Making Pertinent Labs and Imaging studies reviewed. (See chart for details) [] 60-year-old male presents with bleeding from head wound after biopsy was done at stone carriage operator office today. Patient was unable to get bleeding under control. Quick clot and gauze with pressure applied for 20 minutes. Bleeding was controlled. Patient is hemodynamically stable and ready to be discharged. Advised patient that if bleeding continued at home he needed to hold pressure and call his stone carriage operator. If he is unable to get bleeding controlled to return to the ER. Patient reports he understands discharge instructions. (ASHER JJ APRN) Course & Med Decision Making I was the ER physician during date of ER visit. LOWER IN SUPERVISOR independently saw and treated patient. Although I was in the department seeing other patients, no assistance was requested. Electronically signed, Maude Carbone DO (MAUDE CARBONE DO) Elliott Disclaimer: Elliott Disclaimer: This electronic medical record was generated, in whole or in part, using a voice recognition dictation system. (ASHER JJ APRN) Departure Departure: Impression: Primary Impression: Bleeding from wound Disposition: HOME / SELF CARE / HOMELESS Condition: STABLE Referrals: MIGUEL A KELSEY MD (PCP) Patient Instructions: Wound Check Additional Instructions: You were seen in the emergency room for bleeding from your wound. If bleeding returns at home please hold pressure for 15 to 20 minutes and to contact her stone carriage operator. If you are unable to get bleeding under controlled please return to the emergency room. EMERGENCY DEPARTMENT GENERAL DISCHARGE INSTRUCTIONS Thank you for coming to [facility] (ED) today and trusting us with you care. We trust that you had a positivie experience in our Emergency Department. If you wish to speak to the department management, you may call the director at [phone]. YOUR FOLLOW UP INSTRUCTIONS ARE FOLLOWS: 1. Do you have a private Doctor? If you do not have a private doctor, please ask for a resource list of physicians or clinics that may be able to assist you with follow up care. 2. The Emergency Physician has interpreted your x-rays. The X-Ray specialist will also review them. If there is a change in the findings, you will be notified in 48 hours when at all possible. 3. A lab test or culture has been done, your results will be reviewed and you will be notified if you need a change in treatment. ADDITIONAL INSTRUCTIONS AND INFORMATION: 1. Your care today has been supervised by a physician who is specially trained in emergency care. Many problems require more than one evaluation for a complete diagnosis and treatment. We recommend that you schedule your follow up appointment as recommended to ensure complete treatment of you illness or injury. If you are unable to obtain follow up care and continue to have a problem, or if your condition worsens, we recommend that you return to the ED. 2. We are not able to safely determine your condition over the phone nor are we able to give sound medical advice over the phone. For these safety reasons, if you call for medical advice we will ask you to come to the ED for further evaluation. 3. If you have any questions regarding these discharge instructions please call the ED at [phone]. SAFETY INFORMATION: In the interest of safety, wellness, and injury prevention; we encourage you to wear your sealbelt, if you smoke; quite smoking, and we encourage family to use a protective helmet for bicycling and other sporting events that present an increased risk for head injury. IF YOUR SYMPTOMS WORSEN OR NEW SYMPTOMS DEVELOP, OR YOU HAVE CONCERNS ABOUT YOUR CONDITION; OR IF YOUR CONDITION WORSENS WHILE YOU ARE WAITING FOR YOUR FOLLOW UP APPOINTMENT; EITHER CONTACT YOUR PRIMARY CARE DOCTOR, THE PHYSICIAN WHOSE NAME AND NUMBER YOU WERE GIVEN, OR RETURN TO THE ED IMMEDIATELY. ASHER JJ APRN Apr 30, 2021 17:07 MAUDE CARBONE DO May 02, 2021 11:12
== END 2021-04-30 18:00 | disposition home or self-care (01) ==
LOC: ER 16:44
DX: L76.22 Postprocedural hemorrhage of skin and subcutaneous tissue following other procedure (principal); M19.90 Unspecified osteoarthritis, unspecified site; J44.9 Chronic obstructive pulmonary disease, unspecified; I10 Essential (primary) hypertension; F20.9 Schizophrenia, unspecified; F17.210 Nicotine dependence, cigarettes, uncomplicated; Z88.8 Allergy status to other drugs, medicaments and biological substances
CPT/HCPCS: 99281

== ENCOUNTER → 2021-05-01 | Outpatient (CLI) | payer OTHER ==
[2021-04-30 17:06] VITALS: BP 112/85
[~2021-05-01] MED LIST changes: +REGADENOSON 0.4 MG/5 ML DISP.SYRIN. IV ONE
--- NOTE | 2021-05-01 16:38 | RAD ---
MR#: [id number] Date of Study: 05/01/2021 Ordering Physician: JOSEPH FIGUEROA, Referring Physician: LEIGHANN ODOM Tech: RT Erin (R) (N) APPROVED REPORT Test Type: Pharmacological Stress Nurse/Tech: Kaitlin Cedeño / Taras Ibrahim Test Indications: CAD Cardiac History: stent Apr 2020 Medications: See EHR Resting Heart Rate: 74 bpm Resting Blood Pressure: 134/83mmHg Pretest Chest Pain: None Pharm. Details Pharmacologic stress testing was performed using 0.4mg per 5ml of regadenoson given intravenously ove r 7-10 seconds. Stress Symptoms Dyspnea POST EXERCISE Reason for Termination: Infusion complete Max HR: 161 bpm Max Blood Pressure: 138/89mmHg Blood Pressure response to exercise: Normal blood pressure response during stress. Chest Pain: No. Arrhythmia: No. ST Change: No. INTERPRETATION Stress EKG Conclusion: Baseline EKG showed sinus rhythm with old anteroseptal infarct. No ischemic c hanges at peak stress. No arrhythmias. Imaging Protocol IMAGE PROTOCOL: Rest Tc-99m/stress Tc-99m 1 day Rest: Stress: Viability: Radiopharm.Tc99m CxcdralhkYu83y Sestamibi Lmam97oTv 31mCi Duration 15min. 15min. Img Date 05/01/2021 05/01/2021 Inj-Img Ugqt16kwa. 60min. Rest Admin Site:IV - Left AntecubitalAdministrator: RT Erin (R)(N) Stress Admin Site: IV - Left AntecubitalAdministrator: RT Erin (R)(N) STRESS DATA End Diast. Vol.130.0mlAv. Heart Rate75.0bpm End Syst. Vol.78.0mlCO Index BSA0.0L/min Myocardial Feyw827.0gEject. Ircjpbwa36.0% Stress Rates Pk. Fill Rate1.82EDV/secLVtime Pk. Fill 95.07msec Pk. Empty Rate2.89ESV/secLVtime Pk. Dwtty707.55msec 1/3 Pk. Fill1.22EDV/sec Stress Scores Regional WT2.00Summed WT17.00 Regional WM1.00Summed WM21.00 LV Perfusion Scintigraphic images showed a large fixed defect involving the mid to distal anterior wall extending into the anteroseptal, anterolateral and apical ewing consistent with prior myocardial infarction wit hout any reversibility. Wall Motion Akinetic mid to distal anterior wall and apical wall with ejection fraction calculated at 38%. LV Perf. Quant 17 Seg. SSS22.00 17 Seg. SRS21.00 17 Seg. SDS2.00 Stress Defect Extent (% LAD)73.10Rest Defect Extent (% LAD)76.30Rev. Defect Extent (% LAD)0.00 Stress Defect Extent (% LCX) 21.30Rest Defect Extent (% LCX)20.00Rev. Defect Extent (% LCX)0.00 Stress Defect Extent (% RCA)6.70Rest Defect Extent (% RCA)1.10Rev. Defect Extent (% RCA)3.30 Stress Defect Extent (% MOY)47.60Rest Defect Extent (% MOY)45.00Rev. Defect Extent (% MOY)2.00 Conclusion 1. Regadenoson cardioisotope stress test showed a large infarct involving the mid to distal anterior wall and extending into the anteroseptal, anterolateral and apical ewing without any ischemia. 2. Akinetic mid to distal anterior wall and apical wall with ejection fraction calculated at 38%. 3. Low to intermediate risk for cardiac events. Signed by : Joseph Figueroa, Electronically Approved : 05/01/2021 16:38:27
== END ==
LOC: NM 07:53
PROVIDERS: ATTEND Internal Medicine Cardiovascular Disease
DX: I25.10 Atherosclerotic heart disease of native coronary artery without angina pectoris (principal)
CPT/HCPCS: 78452; 93017; A9500; J2785

== ENCOUNTER 2021-08-13 11:26 | Emergency (ER) | payer OTHER ==
[~2021-08-13] VITALS: Ht 167.6 cm; Wt 61.3 kg
[~2021-08-13 11:26] MED LIST changes: -REGADENOSON 0.4 MG/5 ML DISP.SYRIN. IV ONE
[2021-08-13] MEDS ORDERED: IV RINGERS SOLUTION,LACTATED 1,000 ML IV ONE ×2 (12:00→13:45)
[2021-08-13 12:11] LABS: BASO # 0.1 x10^3/uL (0.0-0.2); BASO % 1 % (0-3); EOS # 0.2 x10^3/uL (0.0-0.7); EOS % 2 % (0-3); HEMATOCRIT 41.6 % (39.0-53.0); HEMOGLOBIN 13.9 g/dL (13.0-17.5); LYMPH # 1.9 x10^3/uL (1.0-4.8); LYMPH % 17 % (24-48); MEAN CORPUSCULAR HEMOGLOBIN 30 pg (25-35); MEAN CORPUSCULAR HGB CONC 33 g/dL (31-37); MEAN CORPUSCULAR VOLUME 88 fL (79-100); MONO # 0.7 x10^3/uL (0.0-1.1); MONO % 6 % (0-9); NEUT % 74 % (31-73); RED CELL DISTRIBUTION WIDTH 15.5 % (11.5-14.5); WHITE BLOOD COUNT 10.9 x10^3/uL (4.0-11.0)
[2021-08-13 12:22] LABS: CALCIUM 8.6 mg/dL (8.5-10.1); CREATININE 1.1 mg/dL (0.7-1.3); GFR 67.8; POTASSIUM 5.5 mmol/L (3.5-5.1)
[2021-08-13 12:29] LABS: ALBUMIN 3.3 g/dL (3.4-5.0); ALBUMIN/GLOBULIN RATIO 1.4 (1.0-1.7); MAGNESIUM 2.2 mg/dL (1.8-2.4); PHOSPHORUS 4.1 mg/dL (2.6-4.7); TOTAL BILIRUBIN 0.3 mg/dL (0.2-1.0); TOTAL PROTEIN 5.7 g/dL (6.4-8.2)
[2021-08-13 13:13] LABS: PLATELET COUNT 1068 x10^3/uL (140-400)
[2021-08-13 13:15] LABS: PLT ESTIMATE INCREASED (ADEQUATE)
[2021-08-13 13:16] LABS: TEAR DROP CELLS OCC
[2021-08-13 13:30] VITALS: BP 111/73
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
[2021-08-13 14:42] LABS: CALCIUM 8.1 mg/dL (8.5-10.1); CREATININE 0.9 mg/dL (0.7-1.3); GFR 85.5; POTASSIUM 4.6 mmol/L (3.5-5.1)
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
== END 2021-08-13 15:33 | disposition home or self-care (01) ==
LOC: ER 11:26
DX: E87.5 Hyperkalemia (principal); D69.6 Thrombocytopenia, unspecified; M19.90 Unspecified osteoarthritis, unspecified site; J44.9 Chronic obstructive pulmonary disease, unspecified; I10 Essential (primary) hypertension; F20.9 Schizophrenia, unspecified; F17.210 Nicotine dependence, cigarettes, uncomplicated; Z88.8 Allergy status to other drugs, medicaments and biological substances
CPT/HCPCS: 36415; 80048; 80053; 83735; 84100; 84484; 85025; 93005; 96360; 96361; 99284; J7120